=== PATIENT | female | born 1990 | race Caucasian/White ===

== ENCOUNTER 2017-03-19 01:01 | Emergency (ER) | payer SELFPAY ==
[~2017-03-19] VITALS: Ht 160 cm; Wt 59.0 kg
[~2017-03-19 01:01] MED LIST: IBUP-1060 PO; LABE100T3 PO
[2017-03-19 02:01] LABS: BASO # 0.2 x10^3/uL (0.0-0.2); BASO % 2 % (0-3); EOS % 8 % (0-3); HEMATOCRIT 37.6 % (36.0-47.0); HEMOGLOBIN 12.9 g/dL (12.0-15.5); LYMPH # 3.2 x10^3/uL (1.0-4.8); LYMPH % 45 % (24-48); MEAN CORPUSCULAR HEMOGLOBIN 31 pg (25-35); MEAN CORPUSCULAR HGB CONC 34 g/dL (31-37); MEAN CORPUSCULAR VOLUME 92 fL (79-100); MONO % 8 % (0-9); NEUT % 38 % (31-73); PLATELET COUNT 394 x10^3/uL (140-400); RED CELL DISTRIBUTION WIDTH 12.9 % (11.5-14.5); WHITE BLOOD COUNT 7.3 x10^3/uL (4.0-11.0)
[2017-03-19 02:42] LABS: CALCIUM 8.8 mg/dL (8.5-10.1); CREATININE 0.9 mg/dL (0.6-1.0); GFR 75.1; POTASSIUM 3.5 mmol/L (3.5-5.1)
--- NOTE | 2017-03-19 02:44 | PHYS DOC ---
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 Patient states that her systolic blood pressure at home was over 200 and she just didn't feel well. Patient is currently not taking any medication for hypertension. Upon arrival to the emergency room the patient's blood pressure was 142/88 and the patient is asymptomatic. Patient denies any chest pain or shortness of breath. Patient denies any headaches or vision changes. Patient denied any nausea/vomiting/diarrhea. Patient denies any fevers. Pertinent exam findings: Cranial nerves II through XII are grossly intact without any focal neurological deficits Heart was regular rate and rhythm without any murmurs Lungs are clear to auscultation bilaterally without crackles wheezes or rales ED course: Patient was seen and evaluated a CBC and a BMP and EKG were ordered 0240: On reexamination the patient is sitting up in bed eating [employer] in no acute distress. Patient states she is asymptomatic. Recommended patient follow up with PCP for further evaluation and management of her blood pressure. Pertinent results: 0145: EKG shows normal sinus rhythm rate of 77 no STEMI Laboratory was unremarkable MDM: After reviewing the chart, CC/HPI/PMH, physical exam, [lab results], I do not believe the patient has emergent medical condition warranting further workup and /or admission at this time. The patient's blood pressure has come down in the emergency room and since the patient is asymptomatic I will not treat the blood pressure at this time. I recommended patient follow with PCP in one to 2 days for further management and evaluation of her blood pressure. She is stable for discharge. Additional verbal discharge instructions were provided to the patient and that if symptoms get worse or any new symptoms arise that are worrisome to the patient she is to return to the emergency room immediately Review of Systems Review of Systems GEN: Hypertension HEENT: Denies blurred vision, sore throat CV: Denies chest pain RESP: Denies shortness of air, cough GI: Denies n/v/d NEURO: Denies confusion, dizziness MSK: Denies weakness, joint pain/swelling Allergies Allergies Allergies Coded Allergies Type Severity Reaction Last Updated Verified vancomycin Adverse Reaction Severe Hives/Red Man Syndrome 10/19/15 Yes Physical Exam Physical Exam GEN.: No apparent distress. Alert and oriented. HEENT: Head is normocephalic, atraumatic NECK: Supple. LUNGS: CTAB. HEART: RRR, S1, S2 present. Peripheral pulses intact ABDOMEN: Soft, nontender. Positive bowel sounds. EXTREMITIES: Without any cyanosis. NEUROLOGIC: Normal speech, normal tone, cranial nerves II-12 are grossly intact without any focal neurological deficits PSYCHIATRIC: Normal affect, normal mood. SKIN: No ulcerations Current Patient Data Vital Signs Vital Signs Date Time Temp Pulse Resp B/P (MAP) Pulse Ox O2 Delivery O2 Flow Rate FiO2 03/19/17 02:14 77 20 119/74 (89) 98 Room Air 03/19/17 01:10 97.8 97.8 Lab Values Laboratory Tests Test 03/19/17 00:28 03/19/17 01:50 POC Urine HCG, Qualitative Hcg negative (Negative) White Blood Count 7.3 x10^3/uL (4.0-11.0) Red Blood Count 4.10 x10^6/uL (3.50-5.40) Hemoglobin 12.9 g/dL (12.0-15.5) Hematocrit 37.6 % (36.0-47.0) Mean Corpuscular Volume 92 fL (79-100) Mean Corpuscular Hemoglobin 31 pg (25-35) Mean Corpuscular Hemoglobin Concent 34 g/dL (31-37) Red Cell Distribution Width 12.9 % (11.5-14.5) Platelet Count 394 x10^3/uL (140-400) Neutrophils (%) (Auto) 38 % (31-73) Lymphocytes (%) (Auto) 45 % (24-48) Monocytes (%) (Auto) 8 % (0-9) Eosinophils (%) (Auto) 8 % (0-3) H Basophils (%) (Auto) 2 % (0-3) Neutrophils # (Auto) 2.7 x10^3uL (1.8-7.7) Lymphocytes # (Auto) 3.2 x10^3/uL (1.0-4.8) Monocytes # (Auto) 0.5 x10^3/uL (0.0-1.1) Eosinophils # (Auto) 0.6 x10^3/uL (0.0-0.7) Basophils # (Auto) 0.2 x10^3/uL (0.0-0.2) Sodium Level 142 mmol/L (136-145) Potassium Level 3.5 mmol/L (3.5-5.1) Chloride Level 106 mmol/L (98-107) Carbon Dioxide Level 27 mmol/L (21-32) Anion Gap 9 (6-14) Blood Urea Nitrogen 12 mg/dL (7-20) Creatinine 0.9 mg/dL (0.6-1.0) Estimated GFR (Cockcroft-Gault) 75.1 Glucose Level 96 mg/dL (70-99) Calcium Level 8.8 mg/dL (8.5-10.1) Laboratory Tests 03/19/17 01:50 Laboratory Tests 03/19/17 01:50 EKG EKG EKG shows normal sinus rhythm rate of 77 no STEMI [] Radiology/Procedures Radiology/Procedures [] Course & Med Decision Making Course & Med Decision Making Pertinent Labs and Imaging studies reviewed. (See chart for details) [] Dragon Disclaimer Dragon Disclaimer This electronic medical record was generated, in whole or in part, using a voice recognition dictation system. Departure Departure Impression: Primary Impression: Hypertension Disposition: 01 HOME, SELF-CARE Condition: IMPROVED Referrals: ANNIKA GUY DO (PCP) Patient Instructions: Hypertension Additional Instructions: Please follow up with her family doctor in the next one to 2 days for further management of your blood pressure Problem Qualifiers Primary Impression: Hypertension Hypertension type: essential hypertension Qualified Codes: I10 - Essential ( primary) hypertension REYNA LEÓN DO Mar 19, 2017 02:44
[2017-03-19 02:55] VITALS: BP 115/76
--- NOTE | 2017-03-19 06:54 | EKG ---
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
== END 2017-03-19 02:55 | disposition home or self-care (01) ==
LOC: ER 01:01
DX: I10 Essential (primary) hypertension (principal); Z86.14 Personal history of Methicillin resistant Staphylococcus aureus infection; Z88.1 Allergy status to other antibiotic agents
CPT/HCPCS: 36415; 80048; 81025; 85027; 93005; 99285-25

== ENCOUNTER 2017-09-28 18:52 | Emergency (ER) | payer SELFPAY | END 2017-09-28 19:55 | disposition left against medical advice (07) | LOC: ER 18:52 | DX: H57.8 Other specified disorders of eye and adnexa (principal); Z88.1 Allergy status to other antibiotic agents; Z53.21 Procedure and treatment not carried out due to patient leaving prior to being seen by health care provider ==

== ENCOUNTER 2017-11-16 04:32 | Emergency (ER) | payer SELFPAY | END 2017-11-16 05:00 | disposition left against medical advice (07) | LOC: ER 04:32 | DX: I10 Essential (primary) hypertension (principal); F41.0 Panic disorder [episodic paroxysmal anxiety]; F12.10 Cannabis abuse, uncomplicated; F15.10 Other stimulant abuse, uncomplicated; F17.200 Nicotine dependence, unspecified, uncomplicated; Z88.1 Allergy status to other antibiotic agents; Z53.21 Procedure and treatment not carried out due to patient leaving prior to being seen by health care provider | CPT/HCPCS: 99284 ==

== ENCOUNTER 2018-01-15 23:47 | Emergency (ER) | payer SELFPAY ==
[2018-01-16 00:17] LABS: URINE HCG POC HCG NEGATIVE (Negative)
== END 2018-01-16 00:45 | disposition home or self-care (01) ==
LOC: ER 01-16 00:45
DX: S93.402A Sprain of unspecified ligament of left ankle, initial encounter (principal); S63.502A Unspecified sprain of left wrist, initial encounter; I10 Essential (primary) hypertension; F12.10 Cannabis abuse, uncomplicated; F15.10 Other stimulant abuse, uncomplicated; Z88.1 Allergy status to other antibiotic agents; W01.0XXA Fall on same level from slipping, tripping and stumbling without subsequent striking against object, initial encounter; Y93.89 Activity, other specified; Y92.89 Other specified places as the place of occurrence of the external cause; Y99.8 Other external cause status
CPT/HCPCS: 73110; 73610; 81025; 99284

== ENCOUNTER 2018-09-11 14:43 | Emergency (ER) | payer SELFPAY ==
[~2018-09-11] VITALS: Ht 160 cm; Wt 56.7 kg
[~2018-09-11 14:43] MED LIST changes: -LABE100T3 PO; +LABE100T5 PO; +NAPR500T8 PO
[2018-09-11 14:54] VITALS: BP 138/81
--- NOTE | 2018-09-11 15:09 | PHYS DOC ---
Past Medical History Past Medical History: No Pertinent History Additional Past Medical Histor: MRSA IN THUMB Past Surgical History: No Surgical History Alcohol Use: None Drug Use: None Adult General Chief Complaint Chief Complaint: SKIN PROBLEM HPI HPI 28-year-old female presenting with a rash bilaterally to the knees. Started about 2-3 days ago. No alleviating or exacerbating factors. History of MRSA reportedly. Review of systems is negative for fevers chills chest pain shortness of breath. All other review of systems is negative unless otherwise noted in history of present illness. ED course: 28-year-old male presenting to the emergency department with a rash on both anterior knees. Patient has mildly erythematous papules, approximately 10 on each knee. Recommend washing twice a day with lotion afterwards. Follow- up with dermatology in 3-4 days.The patient has been examined and was not found to have an emergency medical condition. The patient was then discharged home in stable condition to follow up with their primary care physician or concrete inspector over the next 3-4 days. They were to return if their symptoms worsened or if they were concerned for any reason. They were also instructed to return to the emergency department if they were unable to get the recommended and appropriate follow-up. [id number] discharge instructions and return precautions were given. Patient's questions were answered to their satisfaction. Patient is comfortable with plan. Review of Systems Review of Systems SEE ABOVE. Allergies Allergies Allergies Coded Allergies Type Severity Reaction Last Updated Verified vancomycin Adverse Reaction Severe Hives/Red Man Syndrome 10/19/15 Yes Physical Exam Physical Exam SEE ABOVE Constitutional: Well developed, well nourished, no acute distress, non-toxic appearance. [] HENT: Normocephalic, atraumatic, bilateral external ears normal, oropharynx moist, no oral exudates, nose normal. [] Eyes: PERRLA, EOMI, conjunctiva normal, no discharge. [] Neck: Normal range of motion, no tenderness, supple, no stridor. [] Cardiovascular:Heart rate regular rhythm, no murmur [] Lungs & Thorax: Bilateral breath sounds clear to auscultation [] Abdomen: Bowel sounds normal, soft, no tenderness, no masses, no pulsatile masses. [] Skin: as above Back: No tenderness, no CVA tenderness. [] Extremities: No tenderness, no cyanosis, no clubbing, ROM intact, no edema. [] Knees are nontender to palpation with normal range of motion without any pain. Not to touch. Neurologic: Alert and oriented X 3, normal motor function, normal sensory function, no focal deficits noted. [] Psychologic: Affect normal, judgement normal, mood normal. [] EKG EKG [] Radiology/Procedures Radiology/Procedures [] Course & Med Decision Making Course & Med Decision Making Pertinent Labs and Imaging studies reviewed. (See chart for details) [] Dragon Disclaimer Dragon Disclaimer This electronic medical record was generated, in whole or in part, using a voice recognition dictation system. Departure Departure Impression: Primary Impression: Papular rash, localized Disposition: HOME, SELF-CARE Condition: STABLE Referrals: NO PCP (PCP) ROYAL BRAR MD, LISA MD Patient Instructions: Rash Additional Instructions: Thank you for allowing us to participate in your care today. Return to the emergency department you have any new or worsening symptoms, or if you are concerned for any reason. Return to emergency department if you have any new or concerning symptoms including but not limited to fever, chills, nausea, vomiting, intractable pain, any new rashes, chest pain, shortness of air , uncontrolled bleeding, difficulty breathing, and/or vision loss. Follow up with your primary care physician within 3 days. Call your Primary Doctor tomorrow and inform them of your visit today. If you do not have a primary care provider we are happy to provide you with a list of our primary care providers contact information. This condition should be evaluated by your primary care physician and any recommended consulting services for continued management within 2-3 days after discharge. If at any time, you are having difficulty getting into your primary care doctor or a specialist, return to the emergency department. SILVIA BOYCE MD Sep 11, 2018 15:08
== END 2018-09-11 15:24 | disposition home or self-care (01) ==
LOC: ER 14:43
DX: R21 Rash and other nonspecific skin eruption (principal); L53.9 Erythematous condition, unspecified; Z88.1 Allergy status to other antibiotic agents
CPT/HCPCS: 99281

== ENCOUNTER 2019-02-21 17:21 | Observation (INO) | payer SELFPAY ==
[2019-02-21] MEDS ORDERED: IV RINGERS,LACTATED 1000ML 1,000 ML IV SCH (17:39)
[2019-02-21 17:48] LABS: BILIRUBIN,URINE NEGATIVE (NEG); CLARITY,URINE CLEAR; COLOR,URINE YELLOW; NITRITE,URINE NEGATIVE (NEG); PH,URINE 6.5; PROTEIN,URINE NEGATIVE (NEG-TRACE); UROBILINOGEN,URINE 0.2 mg/dL (0.2 mg/dL)
[2019-02-21 17:53] LABS: AMPHETAMINE/METHAMPHETAMINE NEG (NEG); BARBITURATES NEG (NEG); BENZODIAZEPINES NEG (NEG); CANNABINOIDS NEG (NEG); COCAINE NEG (NEG); METHADONE NEG (NEG); OPIATES NEG (NEG); PHENCYCLIDINE NEG (NEG)
[2019-02-21 18:00] LABS: BACTERIA,URINE FEW /HPF (0-FEW); RBC,URINE 0 /HPF (0-2); SQUAMOUS EPITHELIAL CELL,UR MOD /LPF
--- NOTE | 2019-02-21 19:19 | RAD ---
Obstetrical ultrasound HISTORY: No care. Unknown dates and size. FINDINGS: There is posterior. Amniotic fluid volume appears within normal limits. Cervical length cannot be visualized. Maternal ovaries are not visualized. movement is documented. Cardiac activity is documented. heart rate is 152 bpm. Three-vessel cord, stomach, urinary bladder, cord insertion are visualized. Four-chamber heart visualized. Biparietal diameter, head circumference, abdominal circumference and femur length are measured. Estimated sonographic age is 18 weeks 1 day with an estimated due date of 07/24/2019. Estimated weight 0 lbs. 8 oz. +/- 1 ounce. IMPRESSION: Single viable intrauterine fetus, estimated age 18 weeks 1 day. Electronically signed by: Andres Chen MD (02/21/2019 7:16 PM) [facility]
== END 2019-02-21 19:08 | disposition home or self-care (01) ==
LOC: 3 SO LND 17:21
PROVIDERS: ADMIT Obstetrics & Gynecology; ATTEND Obstetrics & Gynecology
DX: O26.892 Other specified pregnancy related conditions, second trimester (principal); R10.9 Unspecified abdominal pain; Z3A.18 18 weeks gestation of pregnancy
CPT/HCPCS: 76815; 80307; 81001; G0378; G0379

== ENCOUNTER 2019-07-09 22:09 | Observation (INO) | payer MEDICAID ==
[2019-07-10 01:08] LABS: BARBITURATES NEG (NEG); BENZODIAZEPINES NEG (NEG); BILIRUBIN,URINE NEGATIVE (NEG); CANNABINOIDS NEG (NEG); CLARITY,URINE CLEAR; COCAINE NEG (NEG); COLOR,URINE YELLOW; METHADONE NEG (NEG); NITRITE,URINE NEGATIVE (NEG); OPIATES NEG (NEG); PHENCYCLIDINE NEG (NEG); PROTEIN,URINE NEGATIVE (NEG-TRACE); UROBILINOGEN,URINE 0.2 mg/dL (0.2 mg/dL)
[2019-07-10 01:10] LABS: BACTERIA,URINE MODERATE /HPF (0-FEW); SQUAMOUS EPITHELIAL CELL,UR MOD /LPF
[2019-07-10 01:11] LABS: AMPHETAMINE/METHAMPHETAMINE NEG (NEG)
== END 2019-07-10 00:10 | disposition home or self-care (01) ==
LOC: 3 SO LND 22:09
PROVIDERS: ADMIT Specialist; ATTEND Specialist
DX: O62.9 Abnormality of forces of labor, unspecified (principal); O26.893 Other specified pregnancy related conditions, third trimester; N89.8 Other specified noninflammatory disorders of vagina; Z3A.37 37 weeks gestation of pregnancy
CPT/HCPCS: 80307; 81001; 87086; G0378; G0379

== ENCOUNTER 2019-07-13 23:02 | Observation (INO) | payer MEDICAID ==
[2019-07-13 23:26] LABS: BILIRUBIN,URINE NEGATIVE (NEG); CLARITY,URINE CLEAR; COLOR,URINE YELLOW; NITRITE,URINE NEGATIVE (NEG); PH,URINE 6.5; PROTEIN,URINE NEGATIVE (NEG-TRACE); UROBILINOGEN,URINE 0.2 mg/dL (0.2 mg/dL)
[2019-07-13] MEDS ORDERED: IV RINGERS,LACTATED 1000ML 1,000 ML IV SCH (23:30)
[2019-07-13 23:34] LABS: BACTERIA,URINE FEW /HPF (0-FEW); RBC,URINE RARE /HPF (0-2); SQUAMOUS EPITHELIAL CELL,UR MOD /LPF
== END 2019-07-14 00:51 | disposition home or self-care (01) ==
LOC: 3 SO LND 23:02
PROVIDERS: ADMIT Specialist; ATTEND Specialist
DX: O62.9 Abnormality of forces of labor, unspecified (principal); Z3A.38 38 weeks gestation of pregnancy
CPT/HCPCS: 81001; 87086; G0378; G0379

== ENCOUNTER 2019-07-18 18:16 | Inpatient (IN) | payer MEDICAID ==
[~2019-07-18] VITALS: Ht 160 cm; Wt 73.0 kg
[2019-07-18 18:36] VITALS: BP 127/79
[2019-07-18] MEDS ORDERED: NALBUPHINE 10 MG/ML AMPUL. IV PRN ×2 (19:00)
[2019-07-18] MEDS ORDERED: 0.9 % SODIUM CHLORIDE 10 ML DISP.SYRIN. IV PRN (19:00)
[2019-07-18] MEDS ORDERED: DINOPROSTONE 10 MG SUPP.VAG VG ONE (19:00)
[2019-07-18] MEDS ORDERED: ONDANSETRON PF 4 MG/2 ML VIAL. IV PRN (19:00)
[2019-07-18] MEDS ORDERED: ACETAMINOPHEN 325 MG TABLET. PO PRN (19:00)
[2019-07-18] MEDS ORDERED: MAG HYDROX/ALUMINUM HYD/SIMETH 30 ML ORAL.SUSP PO PRN (19:00)
[2019-07-18] MEDS ORDERED: IBUPROFEN 400 MG TABLET. PO PRN (19:00)
[2019-07-18] MEDS ORDERED: fentaNYL PF VIAL 100 MCG/2 ML VIAL IV PRN ×6 (19:00)
[2019-07-18] MEDS ORDERED: DOCUSATE SODIUM 283 MG/5 ML ENEMA. PR PRN (19:00)
[2019-07-18] MEDS ORDERED: BUTORPHANOL 2 MG/ML VIAL. IV PRN ×2 (19:00)
[2019-07-18] MEDS ORDERED: OXYTOCIN 30 UNIT/500 ML PREMIX 500 ML IV PRN ×2 (19:00)
[2019-07-18] MEDS ORDERED: TERBUTALINE 1 MG/ML VIAL. SQ PRN (19:00)
[2019-07-18] MEDS ORDERED: LIDOCAINE 1% PF 30 ML VIAL. INJ PRN (19:00)
[2019-07-18] MEDS ORDERED: CITRIC ACID/SODIUM CITRATE 30 ML SOLUTION. PO PRN (19:00)
[2019-07-18] MEDS ORDERED: AMPICILLIN SODIUM 2 GM in IV NORMAL SALINE 100ML 100 ML IV ONE (19:00)
--- NOTE | 2019-07-18 19:00 | NUR ---
29 YO L4 HERE FOR SCHEDULED INDUCTION. GBS POSITIVE. DESIRES EPIDURAL FOR PAIN MANAGEMENT.
[2019-07-18 19:04] LABS: BILIRUBIN,URINE NEGATIVE (NEG); CLARITY,URINE CLEAR; COLOR,URINE YELLOW; NITRITE,URINE NEGATIVE (NEG); PROTEIN,URINE NEGATIVE (NEG-TRACE)
[2019-07-18 19:11] LABS: BARBITURATES NEG (NEG); BENZODIAZEPINES NEG (NEG); CANNABINOIDS NEG (NEG); COCAINE NEG (NEG); METHADONE NEG (NEG); OPIATES NEG (NEG); PHENCYCLIDINE NEG (NEG)
[2019-07-18 19:13] LABS: AMPHETAMINE/METHAMPHETAMINE NEG (NEG)
[2019-07-18 20:03] LABS: BASO # 0.1 x10^3/uL (0.0-0.2); BASO % 1 % (0-3); EOS # 0.2 x10^3/uL (0.0-0.7); EOS % 1 % (0-3); HEMOGLOBIN 10.9 g/dL (12.0-15.5); LYMPH # 2.5 x10^3/uL (1.0-4.8); LYMPH % 18 % (24-48); MEAN CORPUSCULAR HEMOGLOBIN 33 pg (25-35); MEAN CORPUSCULAR HGB CONC 35 g/dL (31-37); MEAN CORPUSCULAR VOLUME 94 fL (79-100); MONO # 0.8 x10^3/uL (0.0-1.1); MONO % 6 % (0-9); NEUT # 9.9 x10^3/uL (1.8-7.7); NEUT % 74 % (31-73); PLATELET COUNT 362 x10^3/uL (140-400); RED BLOOD COUNT 3.29 x10^6/uL (3.50-5.40); RED CELL DISTRIBUTION WIDTH 13.7 % (11.5-14.5); WHITE BLOOD COUNT 13.4 x10^3/uL (4.0-11.0)
[2019-07-18 21:56] VITALS: BP 125/81
[2019-07-18] MEDS ORDERED: AMPICILLIN SODIUM 1 GM in IV NORMAL SALINE 50ML 50 ML IV SCH (23:00)
[2019-07-19] MEDS: ZOLPIDEM 5 MG TABLET. PO PRN ×2 (00:24→21:18)
[2019-07-19] MEDS: MAG HYDROX/ALUMINUM HYD/SIMETH 30 ML ORAL.SUSP PO PRN ×4 (00:25→21:18)
[2019-07-19] MEDS: IV RINGERS,LACTATED 1000ML 1,000 ML IV SCH ×3 (00:27→18:47)
[2019-07-19] MEDS: OXYTOCIN 30 UNIT/500 ML PREMIX 500 ML IV PRN (09:34)
--- NOTE | 2019-07-19 17:48 | PDOC ---
Provider Note Provider Note Induction VSS FHT reassuring Will re-cervadil ACSVD THAO MARTINEZ MD Jul 19, 2019 17:48
[2019-07-19] MEDS ORDERED: DINOPROSTONE 10 MG SUPP.VAG VG ONE (19:00)
[2019-07-20] MEDS: IV RINGERS,LACTATED 1000ML 1,000 ML IV SCH ×4 (02:47→18:47)
[2019-07-20] MEDS: MAG HYDROX/ALUMINUM HYD/SIMETH 30 ML ORAL.SUSP PO PRN (03:28)
[2019-07-20] MEDS: AMPICILLIN SODIUM 1 GM in IV NORMAL SALINE 50ML 50 ML IV SCH ×2 (08:47→13:20)
[2019-07-20] MEDS: OXYTOCIN 30 UNIT/500 ML PREMIX 500 ML IV PRN (08:48)
[2019-07-20] MEDS ORDERED: ROPIVacaine 0.2% PF 10 ML VIAL. ONE ×2 (10:15→11:00)
[2019-07-20] MEDS ORDERED: L&D EPIDURAL SYRINGE 50 ML ONE (10:16)
[2019-07-20] MEDS ORDERED: IV RINGERS,LACTATED 1000ML 1,000 ML IV ONE (10:17)
[2019-07-20] MEDS ORDERED: NALOXONE 0.4 MG/ML VIAL. IV PRN (10:30)
[2019-07-20] MEDS ORDERED: L&D EPIDURAL 50 ML SYRINGE. ONE (11:00)
[2019-07-20] MEDS ORDERED: MMR per PROTOCOL. MC PRN (14:41)
--- NOTE | 2019-07-20 14:43 | PDOC1 ---
OB - History Hx of Present Ultrasounds: Normal mid trimester US Obstetrical Complications: None Medical Complications: None Past Family/Social History * Past Medical, Surgical, Family and Obstetric Histories reviewed from chart. Blood Type: A+ RPR/VDRL: Negative GBS Status: Positive HBsAG: Negative OB - Chief Complaint & HPI Date of Admission: Date of Admission: Jul 18, 2019 at 18:16 Chief Complaint/History : 5 Para: 4 Reason for admission: induction of labor Admission Nurse Assessment Rev: Yes OB - Admission Exam Physical Exam Vitals: VS - Last 72 Hours, by Label Date Time Temp Pulse Resp B/P (MAP) Pulse Ox O2 Delivery O2 Flow Rate FiO2 07/18/19 21:56 98.5 79 20 125/81 (96) 98.5 07/18/19 18:36 89 127/79 (95) HEENT: Normal, Nasal Mucosa Normal, Oropharynx Normal, Moist Membranes, Fontanelles Normal Heart: Regular Rate Lungs: Clear Abdomen: Gravid Reflexes: Normal Cervical Dilatation: 2cm Effacement: 50% Membranes: Intact Amniotic Fluid: Thin Meconium Heart Rate: Normal Accelerations: Accelerations Present Decelerations: No decelerations Short Term Variability: Present Emergency Registrar Variability: Moderate Assessment/Plan Assessment/Plan TIUP Induction ACS THAO MARTINEZ MD Jul 20, 2019 14:43
--- NOTE | 2019-07-20 14:44 | PDOC ---
VAGINAL DELIVERY DATE DATE: 07/20/19 TIME: 14:43 : 5 Para: 4 EDC: Jul 24, 2019 VAGINAL DELIVERY: VTX VACCUM ASSISTED: No PLACENTA: Spontaneous SEX: Male WEIGHT Weight [ ] Nuchal Cord: No Amniotic Fluid: Clear PAIN: Epidural EPISIOTOMY: No EXTENSION: No EBL 300cc COMPLICATIONS None CONDITION Stable Signs of Intrauterine Infectio: None Shoulder Dystocia: No DIAGNOSIS THAO Bae MD Jul 20, 2019 14:44
[2019-07-20] MEDS ORDERED: ZOLPIDEM 5 MG TABLET. PO PRN (14:45)
[2019-07-20] MEDS ORDERED: diphenhydrAMINE HCL 25 MG CAPSULE PO PRN (14:45)
[2019-07-20] MEDS ORDERED: BENZOCAINE 20% TOPICAL AEROSOL SPRAY 57GM CAN. TP PRN (14:45)
[2019-07-20] MEDS ORDERED: SIMETHICONE 80 MG TAB.CHEW PO PRN (14:45)
[2019-07-20] MEDS ORDERED: ACETAMINOPHEN 325 MG TABLET. PO PRN (14:45)
[2019-07-20] MEDS ORDERED: OXYTOCIN 30 UNIT/500 ML PREMIX 500 ML IV PRN (14:45)
[2019-07-20] MEDS ORDERED: PHENYLEPH/MINERAL OIL/PETROLAT RECTAL OINTMENT TUBE. RC PRN (14:45)
[2019-07-20] MEDS ORDERED: MAG HYDROX/ALUMINUM HYD/SIMETH 30 ML ORAL.SUSP PO PRN (14:45)
[2019-07-20] MEDS ORDERED: 0.9 % SODIUM CHLORIDE 10 ML DISP.SYRIN. IV PRN (14:45)
[2019-07-20] MEDS ORDERED: MAGNESIUM HYDROXIDE 2,400 MG/30 ML ORAL.SUSP. PO PRN (14:45)
[2019-07-20] MEDS ORDERED: HYDROCORTISONE 1% TOPICAL OINTMENT 30GM TUBE. TP PRN (14:45)
[2019-07-20] MEDS ORDERED: IBUPROFEN 400 MG TABLET. PO PRN (14:45)
[2019-07-20 17:00] VITALS: BP 113/73
[2019-07-20] MEDS ORDERED: FERROUS SULFATE 325 MG TABLET. PO SCH (17:00)
[2019-07-20 17:50] VITALS: BP 116/70
[2019-07-20] MEDS ORDERED: DIPHTH,PERTUSS(ACELL),TET TOX 0.5 ML DISP.SYRIN. VAX IM ONE (18:30)
[2019-07-20] MEDS ORDERED: FLU VAX QS 2019-20 (36MOS+)/PF 0.5 ML SYRINGE. VAX IM ONE (18:30)
[2019-07-20 20:15] VITALS: BP 127/80
[2019-07-20] MEDS: IBUPROFEN 400 MG TABLET. PO SCH (22:00)
[2019-07-21 02:00] VITALS: BP 103/59
[2019-07-21 05:55] VITALS: BP 123/74
[2019-07-21] MEDS: IBUPROFEN 400 MG TABLET. PO SCH ×2 (06:00→22:05)
[2019-07-21 10:20] VITALS: BP 124/86
--- NOTE | 2019-07-21 13:56 | PDOC ---
Provider Note Provider Note Doing well VSS Uterus NTTP PPBTL in AM FU in AM THAO MARTINEZ MD Jul 21, 2019 13:56
[2019-07-21 15:33] VITALS: BP 124/82
[2019-07-21 20:20] VITALS: BP 130/86
--- NOTE | 2019-07-21 20:20 | NUR ---
Patient care assumed. Assessment completed. OB specific assessment to be done by Camilla montiel RN.
[2019-07-22] VITALS (9 sets, daily range): BP systolic 90–115; BP diastolic 48–76
[2019-07-22] MEDS: IBUPROFEN 400 MG TABLET. PO SCH ×2 (05:19→19:05)
[2019-07-22] MEDS ORDERED: HYDROmorphone 2 MG/ML VIAL IV PRN (07:00)
[2019-07-22] MEDS ORDERED: IV RINGERS,LACTATED 1000ML 1,000 ML IV SCH (07:00)
[2019-07-22] MEDS ORDERED: ONDANSETRON PF 4 MG/2 ML VIAL. IV PRN (07:00)
[2019-07-22] MEDS ORDERED: fentaNYL PF VIAL 100 MCG/2 ML VIAL IV PRN (07:00)
[2019-07-22] MEDS ORDERED: MORPHINE SULFATE 2 MG/ML VIAL. IV PRN (07:00)
[2019-07-22] MEDS ORDERED: PROCHLORPERAZINE 10 MG/2 ML VIAL. IV PRN (07:00)
--- NOTE | 2019-07-22 11:49 | NUR ---
pt down via bed to surgery for btl
[2019-07-22] MEDS ORDERED: FAMOTIDINE 20 MG/2 ML VIAL ONE (11:56)
[2019-07-22] MEDS ORDERED: PROPOFOL 20 ML IV ONE (11:56)
[2019-07-22] MEDS ORDERED: ONDANSETRON PF 4 MG/2 ML VIAL. ONE (11:56)
[2019-07-22] MEDS ORDERED: LIDOCAINE 2% PF 5 ML VIAL. ONE (11:56)
[2019-07-22] MEDS ORDERED: KETOROLAC 30 MG/ML VIAL. ONE (11:56)
[2019-07-22] MEDS ORDERED: fentaNYL PF VIAL 100 MCG/2 ML VIAL ONE (11:57)
[2019-07-22] MEDS ORDERED: ROCURONIUM 50 MG/5 ML VIAL. ONE (11:58)
[2019-07-22] MEDS ORDERED: SUCCINYLCHOLINE 200 MG/10 ML VIAL. ONE (12:46)
[2019-07-22] MEDS ORDERED: MIDAZOLAM HCL/PF 2 MG/2 ML VIAL. ONE (12:47)
[2019-07-22] MEDS ORDERED: DEXAMETHASONE SOD PHOS 4 MG/ML VIAL ONE (12:58)
[2019-07-22] MEDS ORDERED: BUPIVACAINE-EPI 0.5%-1:200000 MPF 30 ML VIAL. INJ ONE (13:00)
--- NOTE | 2019-07-22 13:16 | NUR ---
SS following up with referral regarding mother tested high on Post Depression scale and lack of custody of other children. SS was notified that mother was [facility] early on in the . Per record, pt was negative on UDS and was negative for drugs. SS met with mother to assess circumstance surrounding the referral. Mother reported that she has two children at home with her. Two with her aunt and one with her mother. Mother reported that she works at [employer] and has a shoe caser at [facility]. Mother reported that herpediatrician is Dr. Blancas at [facility] on [facility]. She reported having all supplies needed and car seat and good family support and transportation. Jt from the PAT team consulted for post depression. Jt contacted [facility] and was notified that pt has Generalized Anxiety Disorder and Major Depressive Disorder and has been non-compliant with treatment since April. He reported that pt will need to resume treatment and get back on medications. DCF hotline report made for non-compliance with mental health. Intake# [id number]. Infant RN notified.
[2019-07-22] MEDS ORDERED: GLYCOPYRROLATE 1 MG/5 ML VIAL. ONE (13:41)
[2019-07-22] MEDS ORDERED: NEOSTIGMINE METHYLSULFATE 5 MG/5 ML SYRINGE. ONE (13:41)
[2019-07-22] MEDS ORDERED: SEVOFLURANE 31 TO 60 MINUTES. IH ONE (13:47)
--- NOTE | 2019-07-22 13:55 | PDOC ---
BRIEF OPERATIVE NOTE Date: Jul 22, 2019 Pre-Op Diagnosis Multiparous desires permanent sterilization Post-Op Diagnosis Same Procedure Performed PPBTL Surgeon Man Anesthesia Type: General Blood Loss 10cc Specimens Obtained R and L ova ducts Complications None THAO MARTINEZ MD Jul 22, 2019 13:55
--- NOTE | 2019-07-22 13:57 | PDOC3 ---
OB DISCHARGE SUMMARY DATE OF ADMISSION: DATE OF DISCHARGE: 07/22/19 REASON FOR ADMISSION: Induction of labor PROCEDURES: Ultrasound INTRAPARTUM PROCEDURES: Spontanous Vag Deliv PROCEDURES: Tubal Ligation, None OPERATIONS: None DISCHARGE DIAGNOSIS: Term Delivered DISCHARGE INFORMATION: Activity, Diet HOSPITAL COURSE Unremarkable CONDITION AT DISCHARGE Stable THAO MATRINEZ MD Jul 22, 2019 13:57
[2019-07-22] MEDS ORDERED: OXYC1TAB15 PO (13:59)
[2019-07-22] MEDS ORDERED: NAPR-514 PO (13:59)
[2019-07-22] MEDS: fentaNYL PF VIAL 100 MCG/2 ML VIAL IV PRN ×2 (14:22→14:32)
--- NOTE | 2019-07-22 14:59 | OP ---
DATE OF SURGERY: 07/22/2019 PREOPERATIVE DIAGNOSES: Multiparous, desires permanent sterilization. POSTOPERATIVE DIAGNOSES: Multiparous, desires permanent sterilization. PROCEDURE: bilateral tubal ligation. SURGEON: Chao Conway MD REHEATER HELPER: None. ANESTHESIA: General. ESTIMATED BLOOD LOSS: 5 mL. FLUIDS: Crystalloids. SPECIMENS: Right and left oviducts. COMPLICATIONS: None. DESCRIPTION OF PROCEDURE: After risks, benefits, indications, alternatives discussed in detail with the patient. The patient was brought to the OR theater, placed in the supine position. After adequate general anesthesia, the patient was prepped and draped in usual sterile manner. A small infraumbilical incision was made sharply with scalpel, carried down through the subcutaneous tissue with the Sweeney scissors. Rectus fascia was grasped x 2 with Allis clamps, elevated above the intraabdominal contents, incised sharply with scalpel with care not to injure any underlying structures. Parietal peritoneum was entered bluntly with gloved hand. Retractors were placed within the incision first to manipulate the incision over the left cornu. The incision was manipulated first over the left cornu, the tube was identified, grasped with Mo clamp, followed to its fimbriated end, on the side the simple fimbriectomy was done in clamp, cut, tie manner. Good hemostasis was assured and the proximal part of the tube was allowed to fall back into its normal location. Opposite side was then done similarly except avascular portion in the mesosalpinx mid ampullary region was identified. Bovie cautery was used to create a window. Two ties were used to double ligate the tube approximately 2-3 cm apart. Tube was from these ligatures. Good hemostasis was assured and the tube was allowed to fall back within its normal location. Both tubes had been identified, labeled as left and right in separate containers. Fascia was reapproximated with 0 Vicryl in a running manner. Skin was reapproximated with 4-0 Monocryl. Skin was infiltrated with 0.5% Marcaine with epinephrine. Sponge, needle and instrument counts were correct x 2 per nursing staff. The patient went to postop anesthesia recovery in stable condition. CHAO CONWAY MD DR: BRITTANY/seth JOB#: [id number] / [id number]
--- NOTE | 2019-07-22 18:28 | NUR ---
home instructions gone over with pt and signed no quests on home care
[2019-07-22] MEDS ORDERED: oxyCODONE/APAP 5/325 1 TAB TABLET PO ONE (19:30)
--- NOTE | 2019-07-23 20:06 | PATHOLOGY ---
[facility] Accession Number: [id number] . 01 Material submitted: . PART A: fallopian tube - LEFT FALLOPIAN. Modifiers: left PART B: fallopian tube - RIGHT FALLOPIAN TUBE. Modifiers: right . 01 Clinical history: . Bilateral tubal ligation . 02 Diagnosis: A. Left tubal ligation: - Segment of fallopian tube confirmed, with paratubal cyst. . B. Right tubal ligation: - Segment of fallopian tube confirmed. (JPM/db; 07/23/2019) LBQ 07/23/2019 1550 Local . 02 Electronically signed: . Nehemiah Snowden MD, Pathologist NPI- [id number] . 01 Gross description: . A. The specimen is received in formalin, labeled "Diomedes, Nazanin, left fallopian tube", is a cylindrical segment of fimbriated fallopian tube measuring 5.5 cm in length and up to 0.2 cm in diameter. The serosa is tovar-pink and smooth and the lumen is patent throughout. The specimen is entirely submitted in A1. . B. The specimen is received in formalin, labeled "Diomedes, Nazanin, right fallopian tube", is a cylindrical segment of nonfimbriated fallopian tube measuring 3.5 cm in length and up to 0.3 cm in diameter with attached tovar-pink soft tissue consisting of a similar dilated cylindrical segment. The serosa is tovar-pink and smooth and the lumen is patent throughout. The specimen is entirely submitted in B1. ([facility]; 07/22/2019) [facility] 07/22/2019 204 Local . 02 Pathologist provided ICD-10: N83.8, Z30.2 . 02 CPT . 557685, 026953 Specimen Comment: A courtesy copy of this report has been sent to Specimen Comment: [phone]. Specimen Comment: Report sent to Performed at: [address] [id number] MD Gautam Dominguez MD Phone: [phone] Performed at: [address] [id number] MD Nehemiah Snowden MD Phone: [phone]
== END 2019-07-22 19:00 | disposition home or self-care (01) | DRG 798 ==
LOC: 3 SO LND 18:16 → 3 NORTH 07-20 17:00
PROVIDERS: ADMIT Specialist; ATTEND Specialist
PROC: 10E0XZZ Delivery of Products of Conception, External Approach (ICD-10-PCS; principal; 2019-07-20)
PROC: 3E0R3BZ Introduction of Anesthetic Agent into Spinal Canal, Percutaneous Approach (ICD-10-PCS; 2019-07-20)
PROC: 00HU33Z Insertion of Infusion Device into Spinal Canal, Percutaneous Approach (ICD-10-PCS; 2019-07-20)
PROC: 0UB70ZZ Excision of Bilateral Fallopian Tubes, Open Approach (ICD-10-PCS; 2019-07-22)
DX: O77.0 Labor and delivery complicated by meconium in amniotic fluid (principal); Z37.0 Single live birth; Z3A.40 40 weeks gestation of pregnancy; Z88.8 Allergy status to other drugs, medicaments and biological substances
CPT/HCPCS: 36415; 80307; 81003; 85014; 85025; 86592; 86850; 86900; 86901; A7015; J0290; J0330; J0780; J1100; J1885; J2001; J2250; J2405; J2590; J2704; J2710; J2795; J3010; J3490; J7120; Q0163; G0378

== ENCOUNTER 2021-02-16 21:03 | Emergency (ER) | payer MEDICAID ==
[~2021-02-16] VITALS: Ht 167.6 cm; Wt 145.0 kg
[~2021-02-16 21:03] MED LIST changes: +NAPR-514 PO; +OXYC1TAB15 PO
[2021-02-16 21:57] LABS: BASO # 0.2 x10^3/uL (0.0-0.2); BASO % 3 % (0-3); EOS # 0.6 x10^3/uL (0.0-0.7); EOS % 8 % (0-3); HEMATOCRIT 36.2 % (36.0-47.0); HEMOGLOBIN 12.5 g/dL (12.0-15.5); LYMPH # 2.7 x10^3/uL (1.0-4.8); LYMPH % 34 % (24-48); MEAN CORPUSCULAR HEMOGLOBIN 32 pg (25-35); MEAN CORPUSCULAR HGB CONC 34 g/dL (31-37); MEAN CORPUSCULAR VOLUME 93 fL (79-100); MONO # 0.6 x10^3/uL (0.0-1.1); MONO % 7 % (0-9); NEUT # 3.9 x10^3/uL (1.8-7.7); NEUT % 49 % (31-73); PLATELET COUNT 326 x10^3/uL (140-400); RED BLOOD COUNT 3.91 x10^6/uL (3.50-5.40); RED CELL DISTRIBUTION WIDTH 12.8 % (11.5-14.5)
[2021-02-16 22:10] LABS: CALCIUM 8.5 mg/dL (8.5-10.1); CREATININE 0.8 mg/dL (0.6-1.0); GFR 83.7; MAGNESIUM 1.9 mg/dL (1.8-2.4); POTASSIUM 3.7 mmol/L (3.5-5.1)
[2021-02-16 22:14] LABS: ACETAMIN < 2 mcg/ml (10-30); ETHANOL < 10 mg/dL (0-10); SALIC 3.7 mg/dL (2.8-20.0)
[2021-02-16 22:16] LABS: ALBUMIN 3.5 g/dL (3.4-5.0); ALBUMIN/GLOBULIN RATIO 1.2 (1.0-1.7); PREG TEST PT QUAL NEGATIVE (NEG); TOTAL BILIRUBIN 0.2 mg/dL (0.2-1.0); TOTAL PROTEIN 6.5 g/dL (6.4-8.2)
--- NOTE | 2021-02-16 22:35 | EKG ---
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
[2021-02-16 22:45] VITALS: BP 101/67
--- NOTE | 2021-02-16 22:53 | RAD ---
STUDY: CT head without contrast INDICATION: Syncope versus seizure. COMPARISON: None. TECHNIQUE: Axial CT imaging through the head without the use of intravenous contrast. Sagittal and co ramos reformats were obtained. One or more of the following individualized dose reduction techniques were utilized for this examinat ion: 1. Automated exposure control 2. Adjustment of the mA and/or kV according to patient size 3. Use of iterative reconstruction technique. FINDINGS: No acute intracranial hemorrhage. No mass effect, midline shift or hydrocephalus. Chisholm-white matter d ifferentiation is maintained. Unremarkable calvarium. No layering fluid seen within the visualized paranasal sinuses. Unremarkable mastoid air cells and middle ears. IMPRESSION: Unremarkable head CT. Electronically signed by: REBECCA HCAVEZ MD (02/16/2021 10:50 PM) [facility]
--- NOTE | 2021-02-17 02:10 | PHYS DOC ---
Past Medical History Past Medical History: Depression, Seizure Additional Past Medical Histor: MRSA IN THUMB Past Surgical History: Tubal ligation Additional Past Surgical Histo: R knee Smoking Status: Current Every Day Smoker Alcohol Use: None Drug Use: None Social History Narrative: denies but appears to be under the influence General Adult EDM: Chief Complaint: ALTERED MENTAL STATUS HPI: HPI: 31 yo F Review of Systems: Review of Systems: Constitutional: Denies fever or chills. [] Eyes: Denies change in visual acuity. [] HENT: Denies nasal congestion or sore throat. [] Respiratory: Denies cough or shortness of breath. [] Cardiovascular: Denies chest pain or edema. [] GI: Denies abdominal pain, nausea, vomiting, bloody stools or diarrhea. [] : Denies dysuria. [] Musculoskeletal: Denies back pain or joint pain. [] Integument: Denies rash. [] Neurologic: Denies headache, focal weakness or sensory changes. [] Endocrine: Denies polyuria or polydipsia. [] Lymphatic: Denies swollen glands. [] Psychiatric: Denies depression or anxiety. [] Heart Score: C/O Chest Pain: No Risk Factors: Risk Factors: DM, Current or recent (<one month) smoker, HTN, HLP, family history of CAD, obesity. Risk Scores: Score 0 - 3: 2.5% MACE over next 6 weeks - Discharge Home Score 4 - 6: 20.3% MACE over next 6 weeks - Admit for Clinical Observation Score 7 - 10: 72.7% MACE over next 6 weeks - Early Invasive Strategies Allergies: Allergies: Allergies Coded Allergies Type Severity Reaction Last Updated Verified adhesive tape Allergy Intermediate Rash 07/20/19 Yes vancomycin Adverse Reaction Severe Hives/Red Man Syndrome 10/19/15 Yes Physical Exam: PE: Constitutional: Well developed, well nourished, no acute distress, non-toxic appearance. HENT: Normocephalic, atraumatic, Eyes: EOMI, conjunctiva normal, no discharge. Neck: Normal range of motion, supple, Cardiovascular: S1/2 present, regular rhythm Lungs & Thorax: Speaking in full sentences, bilateral equal chest rise, no tachypnea or increased work of breathing Abdomen: soft, no tenderness, Skin: Warm, dry, no erythema, no rash. [] Back: No tenderness, no CVA tenderness. [] Extremities: No tenderness, no cyanosis, no lower extremity edema Neurologic: Alert and oriented X 3, normal motor function, normal sensory function, no focal deficits noted. [] Psychologic: Affect normal, judgement normal, mood normal. [] Current Patient Data: Labs: Laboratory Tests Test 02/16/21 21:35 White Blood Count 8.0 x10^3/uL (4.0-11.0) Red Blood Count 3.91 x10^6/uL (3.50-5.40) Hemoglobin 12.5 g/dL (12.0-15.5) Hematocrit 36.2 % (36.0-47.0) Mean Corpuscular Volume 93 fL (79-100) Mean Corpuscular Hemoglobin 32 pg (25-35) Mean Corpuscular Hemoglobin Concent 34 g/dL (31-37) Red Cell Distribution Width 12.8 % (11.5-14.5) Platelet Count 326 x10^3/uL (140-400) Neutrophils (%) (Auto) 49 % (31-73) Lymphocytes (%) (Auto) 34 % (24-48) Monocytes (%) (Auto) 7 % (0-9) Eosinophils (%) (Auto) 8 % (0-3) H Basophils (%) (Auto) 3 % (0-3) Neutrophils # (Auto) 3.9 x10^3/uL (1.8-7.7) Lymphocytes # (Auto) 2.7 x10^3/uL (1.0-4.8) Monocytes # (Auto) 0.6 x10^3/uL (0.0-1.1) Eosinophils # (Auto) 0.6 x10^3/uL (0.0-0.7) Basophils # (Auto) 0.2 x10^3/uL (0.0-0.2) Sodium Level 144 mmol/L (136-145) Potassium Level 3.7 mmol/L (3.5-5.1) Chloride Level 107 mmol/L (98-107) Carbon Dioxide Level 26 mmol/L (21-32) Anion Gap 11 (6-14) Blood Urea Nitrogen 15 mg/dL (7-20) Creatinine 0.8 mg/dL (0.6-1.0) Estimated GFR (Cockcroft-Gault) 83.7 BUN/Creatinine Ratio 19 (6-20) Glucose Level 97 mg/dL (70-99) Calcium Level 8.5 mg/dL (8.5-10.1) Magnesium Level 1.9 mg/dL (1.8-2.4) Total Bilirubin 0.2 mg/dL (0.2-1.0) Aspartate Amino Transferase (AST) 28 U/L (15-37) Alanine Aminotransferase (ALT) 24 U/L (14-59) Alkaline Phosphatase 63 U/L (46-116) Troponin I Quantitative < 0.017 ng/mL (0.000-0.055) Total Protein 6.5 g/dL (6.4-8.2) Albumin 3.5 g/dL (3.4-5.0) Albumin/Globulin Ratio 1.2 (1.0-1.7) Lipase 106 U/L (73-393) Serum Test, Qualitative Negative (NEG) Salicylates Level 3.7 mg/dL (2.8-20.0) Salicylate Last Dose Date Salicylate Last Dose Time Acetaminophen Level < 2 mcg/ml (10-30) L Acetaminophen Last Dose Date Acetaminophen Last Dose Time Ethyl Alcohol Level < 10 mg/dL (0-10) Laboratory Tests 02/16/21 21:35 Laboratory Tests 02/16/21 21:35 Vital Signs: Vital Signs Date Time Temp Pulse Resp B/P (MAP) Pulse Ox O2 Delivery O2 Flow Rate FiO2 02/16/21 22:22 87 18 107/75 (86) 99 Room Air 02/16/21 21:05 98.4 98.4 EKG: EKG: [] Radiology/Procedures: Radiology/Procedures: IMAGING REPORT Signed PATIENT: WINIFRED SHORT AACCOUNT: [id number] : 1990 LOCATION: ER AGE: 31 SEX: F EXAM STATUS: PRE ER ORD. PHYSICIAN: NUSRAT SILVA DO REASON: syncope vs seizure, PT REFUSE 2 REMOVE JEWELRY PROCEDURE: CT HEAD WO CONTRAST STUDY: CT head without contrast INDICATION: Syncope versus seizure. COMPARISON: None. TECHNIQUE: Axial CT imaging through the head without the use of intravenous contrast. Sagittal and coronal reformats were obtained. One or more of the following individualized dose reduction techniques were u tilized for this examination: 1. Automated exposure control 2. Adjustment of the mA and/or kV according to patient size 3. Use of iterative reconstruction technique. FINDINGS: No acute intracranial hemorrhage. No mass effect, midline shift or hydrocephalus. Chisholm-white matter differentiation is maintained. Unremarkable calvarium. No layering fluid seen within the visualized paranasal sinuses. Unremarkable mastoid air cells and middle ears. IMPRESSION: Unremarkable head CT. Electronically signed by: REBECCA CHAVEZ MD (02/16/2021 10:50 PM) [facility] DICTATED and SIGNED BY: REBECCA CHAVEZ MD DATE: 02/16/21 [id number] 0 Course & Med Decision Making: Course & Med Decision Making Pertinent Labs and Imaging studies reviewed. (See chart for details) Will discharge home with strict ED return precautions were given for []. Encouraged urgent outpatient follow-up with PMD and [specialist]. Life- threatening processes were considered but are low suspicion at this time, given history, physical exam and ED workup. Pt was educated on all prescription medications and adverse effects. All patient's questions were answered and pt was stable at time of discharge. Life/limb-threatening differential includes but is not limited to, acute coronary syndrome/myocardial infarction, Boerhaave's, DKA, gastrointestinal b leeding, intracranial hemorrhage, ischemic bowel, meningitis, sepsis, surgical abdomen (AAA), toxidrome (drug over/overdose/carbon monoxide, etc), ovarian/testicular torsion, trauma, or infection/sepsis. I spoken with the patient and her caregivers. I explained the patient's condition, diagnoses and treatment plan based on the information available to me at this time. I have answered the patient and her caregiver's questions and addressed any concerns. The patient and her caregivers have a good understanding of patient's diagnosis, condition and treatment plan as can be expected at this point. Vital signs have been stable. Patient's condition is stable and appropriate for discharge from the emergency department. Patient will pursue further outpatient evaluation with primary care physician or other designated or consulting physician as outlined in the discharge instructions. The patient and/or caregivers are agreeable to this plan of care and follow-up instructions have been explained in detail. The patient and/or caregivers have received these instructions in written form and have expressed an understanding of the discharge instructions. The patient and/or caregivers are aware that any significant change of condition or worsening of symptoms should prompt immediate return to this or the closest emergency department or call to 911. Fran Disclaimer: Fran Disclaimer: This electronic medical record was generated, in whole or in part, using a voice recognition dictation system. Departure Departure Impression: Primary Impression: Nausea and vomiting Condition: STABLE Referrals: NO PCP (PCP) FOLLOW UP WITH FAMILY MEDICINE: [address], [address] [place] [address] Patient Instructions: Nausea and Vomiting Additional Instructions: [facility] 05/05 crisis stabilization services [address] [place] [address] EMERGENCY DEPARTMENT GENERAL DISCHARGE INSTRUCTIONS Thank you for coming to [facility] Emergency Department (ED) today and trusting us with you care. We trust that you had a positive experience in our Emergency Department. If you wish to speak to the department management, you may call the Director at [phone]. YOUR FOLLOW UP INSTRUCTIONS ARE FOLLOWS: 1. Do you have a private Doctor? If you do not have a private doctor, please ask for a resource list of physicians or clinics that may be able to assist you with follow up care. 2. The Emergency Physicain has interpreted your x-rays. The X-Ray specialist will also review them. If there is a change in the findings, you will be notified in 48 hours when at all possible. 3. A lab test or culture has been done, your results will be reviewed and you will be notified if you need a change in treatment. ADDITIONAL INSTRUCTIONS AND INFORMATION: 1. Your care today has been supervised by a physician who is specially trained in emergency care. Many problems require more than one evaluation for a complete diagnosis and treatment. We recommend that you schedule your follow up appointment as rec ommended to ensure complete treatment of you illness or injury. If you are unable to obtain follow up care and continue to have a problem, or if your condition worsens, we recommend that you return to the ED. 2. We are not able to safely determine your condition over the phone nor are we able to give sound medical advice over the phone. For these safety reasons, if you call for medical advice we will ask you to come to the ED for further evaluation. 3. If you have any questions regarding these discharge instructions please call the ED at [phone]. SAFETY INFORMATION: In the interest of safety, wellness, and injury prevention; we encourage you to wear your sealbelt, if you smoke; quite smoking, and we encourage family to use a protective helmet for bicycling and other sporting events that present an increased risk for head injury. IF YOUR SYMPTOMS WORSEN OR NEW SYMPTOMS DEVELOP, OR YOU HAVE CONCERNS ABOUT YOUR CONDITION; OR IF YOUR CONDITION WORSENS WHILE YOU ARE WAITING FOR YOUR FOLLOW UP APPOINTMENT; EITHER CONTACT YOUR PRIMARY CARE DOCTOR, THE PHYSICIAN WHOSE NAME AND NUMBER YOU WERE GIVEN, OR RETURN TO THE ED IMMEDIATELY. NUSRAT CHAIREZ DO February 17, 2021 02:10
== END 2021-02-17 03:22 | disposition home or self-care (01) ==
LOC: ER 21:03
DX: R11.2 Nausea with vomiting, unspecified (principal); R41.82 Altered mental status, unspecified; R47.81 Slurred speech; F17.200 Nicotine dependence, unspecified, uncomplicated; Z98.51 Tubal ligation status; Z88.1 Allergy status to other antibiotic agents; Z88.8 Allergy status to other drugs, medicaments and biological substances
CPT/HCPCS: 36415; 70450; 80053; 80329; 83690; 83735; 84484; 84703; 85025; 93005; 99285; G0480